=== PATIENT | male | born 1990 | race Caucasian/White ===

== ENCOUNTER 2024-02-29 14:04 | Emergency (ER) | payer BC ==
[~2024-02-29] VITALS: Ht 175.3 cm; Wt 74.8 kg
[2024-02-29 14:50] VITALS: BP 125/81
[2024-02-29 15:00] VITALS: BP 129/76
[2024-02-29 15:16] VITALS: BP 114/73
[2024-02-29] MEDS ORDERED: Diph, Acellular Pertussis, Tet 0.5 ML/VIAL (Tdap) SDV IM ONE (15:20)
[2024-02-29] MEDS ORDERED: IBUPROFEN 800 MG/TAB PO ONE (15:20)
[2024-02-29] MEDS ORDERED: LIDOcaine HCl 1% (Local Anesth.) 20 ML VIAL STI ONE (15:20)
[2024-02-29] MEDS ORDERED: POVIDONE IODINE 4 OZ BTL TOP ONE (15:25)
[2024-02-29] MEDS ORDERED: SODIUM CHLORIDE 0.9% 10 ML SYR IR ONE (15:25)
[2024-02-29 16:01] VITALS: BP 113/85
[2024-02-29 16:15] VITALS: BP 109/78
[2024-02-29 17:39] VITALS: BP 109/78
== END 2024-02-29 17:40 | disposition home or self-care (01) | DRG 605 ==
LOC: ED 14:04
PROC: 0HQDXZZ Repair Right Lower Arm Skin, External Approach (ICD-10-PCS; principal; 2024-02-29)
DX: S51.011A Laceration without foreign body of right elbow, initial encounter (principal); F17.210 Nicotine dependence, cigarettes, uncomplicated; Y04.0XXA Assault by unarmed brawl or fight, initial encounter